=== PATIENT | female | born 1975 | race Asian ===

== ENCOUNTER 2020-05-26 16:20 | Emergency (ER) | payer BC ==
[~2020-05-26] VITALS: Ht 177.8 cm; Wt 140.6 kg
[2020-05-26 16:42] VITALS: TEMP 98.3
[2020-05-26 18:34] VITALS: BP 156/84
== END 2020-05-26 18:35 | disposition home or self-care (01) ==
LOC: ED 16:42
DX: M13.862 Other specified arthritis, left knee (principal); M25.462 Effusion, left knee; X50.1XXA Overexertion from prolonged static or awkward postures, initial encounter; Y92.89 Other specified places as the place of occurrence of the external cause
CPT/HCPCS: 96372; 99283

== ENCOUNTER 2020-05-28 10:23 | Emergency (ER) | payer BC ==
[~2020-05-28] VITALS: Ht 177.8 cm; Wt 140.6 kg
[2020-05-28 12:45] VITALS: BP 145/71; TEMP 98.3
== END 2020-05-28 12:45 | disposition home or self-care (01) ==
LOC: ED 10:23
PROC: 2W3QX1Z Immobilization of Right Lower Leg using Splint (ICD-10-PCS; principal; 2020-05-28)
DX: S82.491A Other fracture of shaft of right fibula, initial encounter for closed fracture (principal); S82.54XA Nondisplaced fracture of medial malleolus of right tibia, initial encounter for closed fracture; W18.39XA Other fall on same level, initial encounter; Y92.098 Other place in other non-institutional residence as the place of occurrence of the external cause
CPT/HCPCS: 36415; 96374; 99284; J1885